=== PATIENT | female | born 1945 | race Caucasian/White ===

== ENCOUNTER → 2016-08-24 | Outpatient (CLI) | payer OTHER, BC ==
--- NOTE | 2016-08-24 09:01 | MA ---
Screening Digital Mammogram Clinical Indications: Routine screening. Technique: Standard cephalocaudal and mediolateral oblique projections are obtained. This examinati on is processed [facility] detection [facility]. Comparison: June 2015, May 2014, March 2013, February 2012 and January 2011 Breast density: B; There are scattered fibroglandular densities. Findings: CAD was reviewed. Developing density versus overlapping parenchymal structures , directly b ehind the right nipple on the CC view only. The remainder the right and left breast are stable. Impression: Developing density right breast.. BI-RADS 0: Needs additional imaging evaluation, right breast.. Recommendation: Spot compression view in the CC view, along with off midline CC views by 5 degrees a nd a true-lateral view of the right breast. If persistent, proceed to ultrasound, for further charact erization and localization purposes. [facility] will send a result letter to the patient. Negative mammography should not preclude additional workup of a clinically suspicious finding. The patient's information is entered into a reminder system with a target due date for her next mammo gram.
== END ==
LOC: BRMIMAGING 08:11
DX: Z12.31 Encounter for screening mammogram for malignant neoplasm of breast (principal)
CPT/HCPCS: G0202

== ENCOUNTER → 2016-09-08 | Outpatient (CLI) | payer OTHER, BC ==
--- NOTE | 2016-09-08 09:55 | MA ---
Right Diagnostic Digital Mammogram with iCAD Clinical Indications: Asymmetric density on recent screening mammogram. Technique: Digital spot compression CC, off angle cc, and true lateral views. This examination was p rocessed by the iCAD computer-aided detection system. Comparison: Recent mammogram. August 2016, June 2015, May 2014, March 2013 Breast Density: 3, 50-75%. Findings: Previous asymmetric density identified is no longer detected on the additional views or bonnie e lateral views. This is consistent with normal overlapping breast parenchyma. Impression: ACR BI-RADS 2: Benign right mammogram. Recommendation: Annual mammograms with next screening mammograms in August 2017. [facility] will send a result letter to the patient. Negative mammography should not preclude additional workup of a clinically suspicious finding. Findings and recommendations have been discussed with the patient who agrees with the plan. The patient's information is entered into a reminder system with a target due date for her next mammo gram.
== END ==
LOC: BRMIMAGING 08:54
PROVIDERS: ATTEND Family Medicine
DX: R92.8 Other abnormal and inconclusive findings on diagnostic imaging of breast (principal)
CPT/HCPCS: G0206

== ENCOUNTER → 2017-12-13 | Outpatient (CLI) | payer OTHER, BC | LOC: BRMIMAGING 13:48 | PROVIDERS: ATTEND Family Medicine | DX: Z12.31 Encounter for screening mammogram for malignant neoplasm of breast (principal) ==